=== PATIENT | female | born 1980 | race Caucasian/White ===

== ENCOUNTER → 2019-03-18 18:44 | Outpatient (CLI) | payer OTHER, SELFPAY ==
--- NOTE | 2019-03-18 18:48 | DI.MRI.S_ITS ---
PROCEDURE: MR ANKLE RT WO CON INDICATIONS: OTHER INSTABILITY, RIGHT ANKLE TECHNIQUE: Noncontrast sagittal T1 spin echo and T2 fast spin echo with fat saturation, axial proton density fast spin echo and T2 fast spin echo with fat saturation, coronal T1 spin echo and T2 fast spin echo with fat saturation through the ankle/hindfoot. COMPARISON: None. FINDINGS: Image quality: Excellent. Bones and joints: No discrete fractures. Subchondral marrow edema is present in the tibial plafond No hindfoot coalitions. No osteochondral injuries of the talar dome. No pathologic joint effusions. Medial structures: The posterior tibialis, flexor digitorum longus, and flexor hallucis longus tendons are intact. Fluid is seen adjacent to the posterior tibialis and flexor digitorum longus tendons given with tenosynovitis The posterior tibial neurovascular bundle appears normal within the tarsal tunnel, without extrinsic mass effect. The deep layer (anterior and posterior tibiotalar ligaments) and superficial layer (tibionavicular, tibiospring, and tibiocalcaneal ligaments) of the deltoid ligament appear normal. The spring ligament components (superomedial calcaneonavicular, medioplantar oblique calcaneonavicular, and inferoplantar longitudinal ligaments) are intact. Lateral structures: The anterior talofibular, calcaneofibular, and posterior talofibular ligaments appear intact. More superiorly, the anterior and posterior tibiofibular ligaments appear intact, as is the intermalleolar ligament. The tibiofibular syndesmosis is normal in width at 2 mm or less. The peroneus longus and brevis tendons demonstrate normal location and morphology. Adjacent bony peroneal tubercle and retrotrochlear prominence are normal in size. The sinus tarsi demonstrates normal fatty signal, without edema, fibrosis, or cyst formation. Visualized sinus tarsi components (cervical ligament, interosseous talocalcaneal ligament, roots of the inferior extensor retinaculum) appear normal. The calcaneonavicular and calcaneocuboid components of the bifurcate ligament appear intact. The dorsal calcaneocuboid ligament appears intact. Anterior structures: The tibialis anterior, extensor hallucis longus, and extensor digitorum longus tendons appear intact. The dorsal talonavicular ligament appears intact. Posterior and plantar structures: Achilles tendon is intact. There is minimal paratenonitis approximately 8 cm above the calcaneal attachment otherwise the Achilles tendon appears intact. Medial and lateral bands of the plantar fascia are of normal thickness. No abductor digiti quinti muscle atrophy to suggest Schreiber neuropathy. IMPRESSION: Mild posterior tibialis and flexor digitorum longus tenosynovitis. Mild inflammatory changes along the Achilles tendon near the musculotendinous junction, nonspecific although could represent low-grade strain. Achilles tendon otherwise intact. Subchondral marrow edema present in the tibial plafond, probably reactive to degenerative changes rather than acute marrow contusion Dictated by: Romulo Ward M.D. on 03/19/2019 at 15:46 Approved by: Romulo Ward M.D. on 03/19/2019 at 16:12
== END ==
PROVIDERS: Visit Provider Podiatrist
DX: M25.371 Other instability, right ankle (principal); M65.871 Other synovitis and tenosynovitis, right ankle and foot
CPT/HCPCS: 73721

== ENCOUNTER → 2019-03-19 14:37 | Outpatient (CLI) | payer OTHER, SELFPAY | PROVIDERS: Visit Provider Podiatrist | DX: M25.371 Other instability, right ankle (principal); Z53.9 Procedure and treatment not carried out, unspecified reason | CPT/HCPCS: 73721 ==